=== PATIENT | female | born 1995 | race Caucasian/White ===

== ENCOUNTER 2016-09-26 21:41 | Emergency (ER) | payer BC ==
--- NOTE | 2016-10-06 07:29 | ER ---
ADMIT: 09/26/2016 RM/LOC: ER [facility] MR#: [id number] [place], [place] [id number] [address] [place] [address] Emergency Room Report SEX: F AGE: 20 : 1995 DATE: 09/26/2016 HISTORY OF PRESENT ILLNESS: Patient is a 20-year-old, exposed to influenza. Brother has influenza B. For 3 days, she has been feeling like she has body aches, cough, and right ear pain. Feels pretty fatigued. She coughs yellow sputum. Her vitals are normal except for temperature over 100.2. She has had a history of ear infections. PHYSICAL EXAMINATION: VITAL SIGNS: Febrile female, mildly anxious. HEENT: Normal inspection. Nasal mucosa patent. Pharynx clear. NECK: Supple. No adenopathy. RESPIRATIONS: No distress. EXTREMITIES: Well perfused. CLINICAL IMPRESSION: 1. Exposure to influenza. 2. Myalgia. 3. Fever. 4. Cough. 5. Viral syndrome. PLAN: Influenza negative. Given Phenergan and codeine for cough. Encouraged to drink lots of fluids. Rest. Given a dose of Phenergan in the ER. No driving after taking Phenergan with codeine. Note for work has been given as well. LINDA Mast / Luis De Dios MD / fab JOB #: [id number] CC: Luis De Dios MD, Attending Physician Manuel Ellis MD, Family Physician
== END 2016-09-27 00:36 | disposition home or self-care (01) ==
LOC: ER 21:41
DX: B34.9 Viral infection, unspecified (principal); M79.1 Myalgia